=== PATIENT | female | born 1960 | race Caucasian/White ===

== ENCOUNTER 2016-07-24 16:03 | Emergency (ER) | payer BC, OTHER ==
[~2016-07-24] VITALS: Ht 167.6 cm; Wt 74.6 kg
[2016-07-24 16:06] VITALS: TEMP 36.8; Ht 167.6 cm; Wt 74.6 kg
[2016-07-24] MEDS ORDERED: NIFE30TA83 PO (16:50)
[2016-07-24] MEDS ORDERED: NTRGSL/4 UT (16:50)
[2016-07-24] MEDS ORDERED: COEN1CAP7 PO (16:51)
[2016-07-24] MEDS ORDERED: ASPI81TA28 PO (16:51)
[2016-07-24] MEDS ORDERED: RANI150T3 PO (16:54)
[2016-07-24] MEDS ORDERED: MOME0.1O TOP (16:54)
[2016-07-24 16:57] VITALS: O2SAT 100
[2016-07-24] MEDS ORDERED: SODIUM CHLORIDE 0.9% 1000ML 1,000 ML IV STA (16:59)
--- NOTE | 2016-07-24 17:01 | EMERGENCY ROOM VISIT NOTE ---
History Report prepared by Leopoldo: Fred Martinez Under the Supervision of: Dr. Jj Ashford D.O. First contact with patient: 16:49 Chief Complaint: CHEST PAIN Stated Complaint: CHEST DISCOMFORT,SOB Nursing Triage Summary: chest pains and sob intermittent for the past several weeks. I always have discomfort in the chest but this is worse. I was supposed to double my meds but I couldnt function so i didnt. last november is when they discovered an issues. History of Present Illness The patient is a 55 year old female with a history of angina who presents to the Emergency Room with complaints of intermittent chest discomfort for the past several weeks. The patient has had the pain since spring, which worsened several weeks ago. The pain is described as a squeezing sensation. The patient also complains of tachycardia and shortness of breath intermittently. The pain does not radiate. She recently had an abnormal EKG. She also had an echocardiogram. The patient hasn't had a stress test recently. She has had two cardiac catheterizations. She follows up with [facility] Cardiology. The patient has a history peripheral vascular disease and Raynaud's. She is a former smoker. The patient does not drink alcohol. The patient does not currently have a family doctor. LNMP six months ago. Source of History: patient Onset: several weeks Position: chest Quality: other (squeezing) Timing: intermittent Associated Symptoms: + SOB Review of Systems See HPI for pertinent positives & negatives. A total of 10 systems reviewed and were otherwise negative. Past Medical & Surgical Medical Problems: (1) CAD (coronary artery disease) (2) PVD (peripheral vascular disease) (3) Raynauds disease Family History No pertinent family history Social History Smoking Status: Never Smoker Alcohol Use: none Current/Historical Medications Scheduled Aspirin (Aspirin Ec), 81 MG PO BID Cholecalciferol (Vitamin D3), 1 TAB PO BID Coenzyme Q10 (Ubidecarenone) (Coq10), 200 MG PO BID Cyclosporine (Ophth) (Restasis), 1 DROPS OP BID Fish Oil (Celestine-3), 1 CAP PO QAM Green Tea (Camillia Sinensis) (Green Tea), 1 CAP PO BID Loratadine (Claritin), 10 MG PO HS Nifedipine Ext Rel (Procardia Xl Ext Rel), 30 MG PO QAM Pilocarpine (Salagen), 5 MG PO TID Probiotic Product (Probiotic), 2 CAP PO HS Ranitidine Hcl (Zantac), 150 MG PO HS Triamcinolone Acetonide (Nasal (Nasacort Allergy 24Hr), 2 SPRAYS KATHRINE HS [Amberen], 2 CAP PO HS Scheduled PRN Albuterol Sulfate (Proair Respiclick), 1 PUFF INH QID PRN for Shortness of Breath Diclofenac Sodium (Topical) (Voltaren 1% Top Gel), 1 APPLN TOP UD PRN for ARTHRITIS Eye Drops (Eye Drops), 1 DROP OPB UD PRN for DRY EYES Mometasone Furoate (Elocon), 1 APPLN TOP UD PRN for PERNIO Nitroglycerin (Nitrostat), 0.4 MG UT PRN PRN for Chest Pain Phenylephrine-Ibuprofen (Advil Congestion Relief), 1 TAB PO UD PRN for ALLERGY RELIEF Polyethylene Glycol 3350 (Miralax), 17 GM PO HS PRN for Constipation Polyvinyl Alcohol-Povidone (Op (Refresh), 1 DROP OPB UD PRN for DRY EYES [Midodrine Hcl 0.2%], 1 APPLN TOP HS PRN for ERYTHROMELALGIA Allergies Coded Allergies: Rosuvastatin (Verified Allergy, Intermediate, MYALGIA, 07/24/16) Theophylline (Verified Allergy, Intermediate, N & V, 07/24/16) Latex (Verified Allergy, Mild, SKIN IRRITATION, 07/24/16) Uncoded Allergies: CARDIZEM (Allergy, Intermediate, RESP. DISTRESS WITH SHORT ACTING, 04/06/13 ) STEROIDS (Allergy, Intermediate, AGITATION, 04/06/13) STEROIDS INHALER (Allergy, Intermediate, THRUSH, 04/06/13) Physical Exam Vital Signs Date Time Temp Pulse Resp B/P Pulse Ox O2 Delivery O2 Flow Rate FiO2 07/24/16 19:46 72 23 133/94 98 07/24/16 18:16 80 16 147/90 98 Room Air 07/24/16 17:00 121 07/24/16 16:57 100 Room Air 07/24/16 16:06 36.8 123 18 153/99 98 Room Air Physical Exam GENERAL: Patient is awake, alert, and in no acute distress. Patient is resting comfortably and showing no signs of anxiety EYES: The conjunctivae are clear. The pupils are round and reactive. EARS, NOSE, MOUTH AND THROAT: The nose is without any evidence of any deformity. Mucous membranes are moist tongue is midline NECK: The neck is nontender and supple. RESPIRATORY: Normal respiratory effort is noted there is no evidence of wheezing rhonchi or rales CARDIOVASCULAR: Regular rate and rhythm noted there no murmurs rubs or gallops normal S1 normal S2 GASTROINTESTINAL: The abdomen is soft. Bowel sounds are present in all quadrants. Abdomen is nontender PELVIS: The Pelvis is stable. No tenderness to palpation is noted. BACK: No midline tenderness or or step-off noted range of motion in flexion extension as well as rotation no signs of muscle spasm noted MUSCULOSKELETAL/EXTREMITIES: There is no evidence of gross deformity full range of motion is noted in the hips and shoulders SKIN: There is no obvious evidence of any rash. There are no petechiae, pallor or cyanosis noted. NEUROLOGIC: Patient is awake alert and oriented x3. Medical Decision & Procedures ER Provider Diagnostic Interpretation: X-ray results as stated below per interpretation by me and the radiologist. CHEST ONE VIEW PORTABLE CLINICAL HISTORY: EVALUATE RESPIRATORY DISTRESS. DYSPNEA cough COMPARISON STUDY: No previous studies for comparison. FINDINGS: The bones soft tissues and hemidiaphragms are normal. The cardiomediastinal silhouette is normal. The lungs are clear. The pulmonary vasculature is normal. IMPRESSION: Negative chest. Electronically signed by: Kamari Dawson M.D. 07/24/2016 5:24 PM Dictated Date/Time: 07/24/2016 5:24 PM Laboratory Results 07/24/16 16:55 Red Blood Count 4.75, Mean Corpuscular Volume 90.3, Mean Corpuscular Hemoglobin 30.3, Mean Corpuscular Hemoglobin Concent 33.6, Mean Platelet Volume 10.8, Neutrophils (%) (Auto) 63.6, Lymphocytes (%) (Auto) 27.5, Monocytes (%) (Auto) 8.4, Eosinophils (%) (Auto) 0.3, Basophils (%) (Auto) 0.2, Neutrophils # (Auto) 4.15, Lymphocytes # (Auto) 1.79, Monocytes # (Auto) 0.55, Eosinophils # (Auto) 0.02, Basophils # (Auto) 0.01 07/24/16 16:55 Test 07/24/16 15:45 07/24/16 16:55 Urine Color YELLOW Urine Appearance CLEAR (CLEAR) Urine pH 5.5 (4.5-7.5) Urine Specific [place] 1.001 (1.000-1.030) Urine Protein NEG (NEG) Urine Glucose (UA) NEG (NEG) Urine Ketones TRACE (NEG) Urine Occult Blood TRACE (NEG) Urine Nitrite NEG (NEG) Urine Bilirubin NEG (NEG) Urine Urobilinogen NEG (NEG) Urine Leukocyte Esterase TRACE (NEG) Urine WBC (Auto) 1-5 /hpf (0-5) Urine RBC (Auto) 0-4 /hpf (0-4) Urine Hyaline Casts (Auto) 0 /lpf (0-5) Urine Epithelial Cells (Auto) 5-10 /lpf (0-5) Urine Bacteria (Auto) NEG (NEG) White Blood Count 6.52 K/uL (4.8-10.8) Red Blood Count 4.75 M/uL (4.2-5.4) Hemoglobin 14.4 g/dL (12.0-16.0) Hematocrit 42.9 % (37-47) Mean Corpuscular Volume 90.3 fL (80-100) Mean Corpuscular Hemoglobin 30.3 pg (25-34) Mean Corpuscular Hemoglobin Concent 33.6 g/dl (32-36) Platelet Count 268 K/uL (130-400) Mean Platelet Volume 10.8 fL (7.4-10.4) Neutrophils (%) (Auto) 63.6 % Lymphocytes (%) (Auto) 27.5 % Monocytes (%) (Auto) 8.4 % Eosinophils (%) (Auto) 0.3 % Basophils (%) (Auto) 0.2 % Neutrophils # (Auto) 4.15 K/uL (1.4-6.5) Lymphocytes # (Auto) 1.79 K/uL (1.2-3.4) Monocytes # (Auto) 0.55 K/uL (0.11-0.59) Eosinophils # (Auto) 0.02 K/uL (0-0.5) Basophils # (Auto) 0.01 K/uL (0-0.2) RDW Standard Deviation 43.3 fL (36.4-46.3) RDW Coefficient of Variation 13.1 % (11.5-14.5) Immature Granulocyte % (Auto) 0.0 % Immature Granulocyte # (Auto) 0.00 K/uL (0.00-0.02) Prothrombin Time 10.9 SECONDS (9.0-12.0) Prothromb Time International Ratio 1.0 (0.9-1.1) Activated Partial Thromboplast Time 27.2 SECONDS (21.0-31.0) Partial Thromboplastin Ratio 1.0 D-Dimer 220 ug/L FEU (0-500) Anion Gap 9.0 mmol/L (3-11) Est Creatinine Clear Calc Drug Dose 78.1 ml/min Estimated GFR () 90.0 Estimated GFR (Non- 77.7 BUN/Creatinine Ratio 14.1 (10-20) Calcium Level 9.1 mg/dl (8.5-10.1) Magnesium Level 1.8 mg/dl (1.8-2.4) Total Bilirubin 0.3 mg/dl (0.2-1) Aspartate Amino Transf (AST/SGOT) 16 U/L (15-37) Alanine Aminotransferase (ALT/SGPT) 24 U/L (12-78) Alkaline Phosphatase 71 U/L (45-117) Troponin I < 0.015 ng/ml (0-0.045) Total Protein 7.9 gm/dl (6.4-8.2) Albumin 4.1 gm/dl (3.4-5.0) Globulin 3.8 gm/dl (2.5-4.0) Albumin/Globulin Ratio 1.1 (0.9-2) Thyroid Stimulating Hormone (TSH) 1.570 uIu/ml (0.300-4.500) Free Thyroxine 1.08 ng/dl (0.80-1.60) Human Chorionic Gonadotropin, Qual NEG (NEG) Laboratory results per my review. Medications Administered Medications (Trade) Dose Ordered Sig/Vanessa Route Start Time Stop Time Status Last Admin Dose Admin Sodium Chloride (Nss 1000ml) 1,000 ml @ 999 mls/hr Q1H1M STAT IV 07/24/16 16:59 07/24/16 17:59 DC 07/24/16 17:17 999 MLS/HR ECG Indication: chest pain Rate (beats per minute): 113 Rhythm: sinus tachycardia Findings: ST depression (inferior, lateral), no ectopy Change: No change when compared to undated laminated EKG that she carries with her. ED Course 1655: The patient was evaluated in room C5. A complete history and physical examination were performed. 1658: NSS 1000 ml @ 999 mls/hr. 1842: The patient caries a laminated EKG that is not dated. She says the EKG is a few years old. The EKG today is unchanged compared to the laminated EKG. 193: Reassessed the patient. Discussed the findings with her. She verbalized understanding and agreement of the treatment plan. The patient is ready for discharge. Medical Decision Etiologies such as cardiac ischemia, aortic dissection, pulmonary embolism, pneumonia, pneumothorax, musculoskeletal, infections, pericarditis, myocarditis , esophageal rupture, gastrointestinal, as well as others were entertained. Nursing notes reviewed. The patient is a 55-year-old female who presented to the emergency department for evaluation of chest pain. The patient has had ongoing chest pain problems for the last year. She is been worked up in the past. She's had echocardiograms. She also complained of some shortness of breath. The patient's d-dimer was negative. She did not have significant hypoxia her EKG showed some abnormalities but she was able to produce a previous EKG that had similar T- wave abnormalities. I discussed the patient's laboratory and radiographic studies with her. Her troponin was negative despite having ongoing symptoms for greater than 6 hours. I discussed the limitations of the emergency department workup for chest pain with her. She was encouraged to rest and avoid any strenuous activity. She was also encouraged to call her primary care physician to schedule a follow-up appointment as soon as possible. She was also encouraged to return to the emergency department immediately if symptoms change worsen or the need arises. Impression Primary Impression: Substernal chest pain Additional Impression: Abnormal EKG Scribe Attestation The scribe's documentation has been prepared under my direction and personally reviewed by me in its entirety. I confirm that the note above accurately reflects all work, treatment, procedures, and medical decision making performed by me. Departure Information Dispostion Home / Self-Care Referrals No Doctor, Assigned (PCP) Forms HOME CARE DOCUMENTATION FORM, IMPORTANT VISIT INFORMATION, Work Instructions Patient Instructions ED Chest Pain Atypical Unkn Cause, My [facility] Additional Instructions Call your family to schedule a follow-up appointment. Rest and avoid any strenuous activity. Continue all medications as prescribed. Return to the emergency department if symptoms change worsen or if the need arises. Problem Qualifiers
[2016-07-24 17:10] LABS: BASO % 0.2 %; BASO ABS # 0.01 K/uL (0-0.2); COMPLETE YES; EOS % 0.3 %; HEMATOCRIT 42.9 % (37-47); LYMPH % 27.5 %; LYMPH ABS # 1.79 K/uL (1.2-3.4); MEAN CELL VOLUME 90.3 fL (80-100); MEAN CORPUSCULAR HEMOGLOBIN 30.3 pg (25-34); MEAN CORPUSCULAR HGB CONC 33.6 g/dl (32-36); MEAN PLATELET VOLUME 10.8 fL (7.4-10.4); MONO % 8.4 %; NEUT % 63.6 %; PLATELET COUNT 268 K/uL (130-400); RED BLOOD COUNT 4.75 M/uL (4.2-5.4); WHITE BLOOD COUNT 6.52 K/uL (4.8-10.8)
[2016-07-24 17:26] LABS: PREG INTERNAL NEGATIVE QC NEG CLEAR BACKGROUND; PREG INTERNAL POSITIVE QC POS CONTROL LINE
--- NOTE | 2016-07-24 17:26 | DIAGNOSTIC IMAGING REPORT ---
CHEST ONE VIEW PORTABLE CLINICAL HISTORY: EVALUATE RESPIRATORY DISTRESS. DYSPNEA cough COMPARISON STUDY: No previous studies for comparison. FINDINGS: The bones soft tissues and hemidiaphragms are normal. The cardiomediastinal silhouette is normal. The lungs are clear. The pulmonary vasculature is normal. IMPRESSION: Negative chest. Electronically signed by: Kamari Dawson M.D. 07/24/2016 5:24 PM Dictated Date/Time: 07/24/2016 5:24 PM
[2016-07-24] MEDS ORDERED: MIDODRINE HCL TOP (17:28)
[2016-07-24] MEDS ORDERED: EYED OPB (17:28)
[2016-07-24] MEDS ORDERED: AMBEREN PO (17:28)
[2016-07-24] MEDS ORDERED: DICL1GEL12 TOP (17:28)
[2016-07-24] MEDS ORDERED: TRIA1SPR4 NAE (17:28)
[2016-07-24] MEDS ORDERED: OMEG10007 PO (17:28)
[2016-07-24] MEDS ORDERED: MISCCAP80 PO (17:28)
[2016-07-24] MEDS ORDERED: CLR10 PO (17:28)
[2016-07-24] MEDS ORDERED: GREE315C PO (17:28)
[2016-07-24] MEDS ORDERED: CHOL20007 PO (17:28)
[2016-07-24] MEDS ORDERED: POLYSOL OPB (17:28)
[2016-07-24] MEDS ORDERED: ALBU18002 INH (17:28)
[2016-07-24] MEDS ORDERED: PILO5TAB10 PO (17:28)
[2016-07-24] MEDS ORDERED: [UNRECOGNIZED DRUG - CODE] PO (17:28)
[2016-07-24] MEDS ORDERED: POLY335019 PO (17:28)
[2016-07-24] MEDS ORDERED: CYCL0.052 OP (17:28)
[2016-07-24 17:32] LABS: PROTHROMBIN TIME (PATIENT) 10.9 SECONDS (9.0-12.0)
[2016-07-24 17:34] LABS: ALT/SGPT 24 U/L (12-78); AST/SGOT 16 U/L (15-37); BLOOD UREA NITROGEN 12 mg/dl (7-18); BUN/CREATININE RATIO 14.1 (10-20); CALCIUM 9.1 mg/dl (8.5-10.1); CARBON DIOXIDE 27 mmol/L (21-32); CHLORIDE 107 mmol/L (98-107); CREATININE 0.85 mg/dl (0.60-1.20); GLUCOSE 96 mg/dl (70-99); MAGNESIUM 1.8 mg/dl (1.8-2.4); POTASSIUM 3.6 mmol/L (3.5-5.1); SODIUM 143 mmol/L (136-145)
[2016-07-24 17:45] LABS: ALB/GLOB RATIO 1.1 (0.9-2); ALKALINE PHOSPHATASE 71 U/L (45-117)
[2016-07-24 18:02] LABS: URINE APPEARANCE CLEAR (CLEAR); URINE BILIRUBIN NEG (NEG); URINE COLOR YELLOW; URINE NITRITE NEG (NEG); URINE PH 5.5 (4.5-7.5); URINE SPECIFIC GRAVITY 1.001 (1.000-1.030); UROBILINOGEN NEG (NEG)
[2016-07-24 18:09] LABS: MANUAL MICROSCOPIC REQUIRED? NO; REVIEW REQ? NO
[2016-07-24 19:46] VITALS: BP 133/94; PULSE 72; O2SAT 98
== END 2016-07-24 19:46 | disposition home or self-care (01) ==
LOC: C.EDB 16:03 → C.EDC 19:46
DX: R07.2 Precordial pain (principal); R94.31 Abnormal electrocardiogram [ECG] [EKG]; R06.02 Shortness of breath; R00.0 Tachycardia, unspecified; I25.10 Atherosclerotic heart disease of native coronary artery without angina pectoris; I73.9 Peripheral vascular disease, unspecified; I73.00 Raynaud's syndrome without gangrene; Z87.891 Personal history of nicotine dependence; Z79.82 Long term (current) use of aspirin; Z79.899 Other long term (current) drug therapy; Z88.8 Allergy status to other drugs, medicaments and biological substances; Z91.040 Latex allergy status

== ENCOUNTER → 2016-08-18 | Outpatient (CLI) | payer OTHER ==
[~2016-08-18] MED LIST: ALBU18002 INH; AMBEREN PO; ASPI81TA28 PO; CHOL20007 PO; CLR10 PO; COEN1CAP7 PO; CYCL0.052 OP; DICL1GEL12 TOP; EYED OPB; GREE315C PO; MIDODRINE HCL TOP; MISCCAP80 PO; MOME0.1O TOP; NIFE30TA83 PO; NTRGSL/4 UT; OMEG10007 PO; PILO5TAB10 PO; POLY335019 PO; POLYSOL OPB; RANI150T3 PO; TRIA1SPR4 NAE; [UNRECOGNIZED DRUG - CODE] PO
--- NOTE | 2016-08-18 15:59 | MAMMOGRAPHY REPORT ---
BILATERAL DIGITAL SCREENING MAMMOGRAM TOMOSYNTHESIS WITH CAD: 08/18/2016 TECHNIQUE: Breast tomosynthesis in addition to standard 2D mammography was performed. Current study was also evaluated with a Computer Aided Detection (CAD) system. COMPARISON: Comparison is made to exams dated: 08/06/2015 mammogram, 07/31/2014 mammogram, 07/19/2012 mammogram, 07/14/2011 mammogram, 07/25/2013 mammogram, and 07/07/2010 mammogram - [facility]. BREAST COMPOSITION: The tissue of both breasts is extremely dense, which lowers the sensitivity of mammography. FINDINGS: There is a small cluster of calcifications in the right upper outer quadrant, for which s pot magnification views are recommended for further evaluation. The remainder of both breasts are stable compared to prior exams, without suspicious masses, calcifi cations, or areas of architectural distortion noted. Other scattered bilateral benign appearing imelda cifications are not significantly changed. A biopsy marker clip is again noted in the right upper o uter quadrant. IMPRESSION: ACR BI-RADS CATEGORY 0: INCOMPLETE EVALUATION: NEED ADDITIONAL IMAGING EVALUATION Right upper outer quadrant calcifications, for which additional imaging evaluation is recommended. The patient will be called to schedule an appointment. Approximately 10% of breast cancers are not detected with mammography. A negative mammographic repor t should not delay biopsy if a clinically suggestive mass is present. Nelsy Hernandez M.D. ah/:08/18/2016 15:50:50 Senior Vice President And Chief Information Officer: Mikala CONTRERAS(Mejia)(Shelly), [facility] letter sent: Addl Imaging 0 BI-RADS Code: ACR BI-RADS Category 0: Incomplete Evaluation: Need Additional Imaging Evaluation
== END | disposition home or self-care (01) ==
LOC: C.MAMM 11:43
PROVIDERS: ATTEND Obstetrics & Gynecology
DX: Z12.31 Encounter for screening mammogram for malignant neoplasm of breast (principal); R92.1 Mammographic calcification found on diagnostic imaging of breast

== ENCOUNTER → 2016-08-25 | Outpatient (CLI) | payer OTHER ==
--- NOTE | 2016-08-25 15:31 | MAMMOGRAPHY REPORT ---
UNILATERAL RIGHT DIGITAL DIAGNOSTIC MAMMOGRAM: 08/25/2016 CLINICAL HISTORY: 55-year-old woman with a history of prior benign right breast stereotactic biopsy called back from screening mammography for a new cluster of coarse heterogeneous microcalcifications in the upper outer quadrant of the right breast. TECHNIQUE: Spot magnification right CC and ML views were obtained. COMPARISON: Comparison is made to exams dated: 08/18/2016 mammogram, 07/31/2014 mammogram, 08/06/2015 m ammogram, 07/25/2013 mammogram, 07/19/2012 mammogram, and 07/14/2011 mammogram - [facility]. BREAST COMPOSITION: The tissue of the right breast is heterogeneously dense, which may obscure smal l masses. FINDINGS: There is a 5 mm cluster of coarse heterogeneous microcalcifications in the upper outer po sterior right breast. Although this could represent a degenerating fibroadenoma or papilloma, it is indeterminate. The morphology is different from the biopsied cluster in 2009, which was more amorp hous in appearance. Therefore, further characterization with a right breast stereotactic biopsy is recommended. IMPRESSION: ACR BI-RADS CATEGORY 4B: INTERMEDIATE SUSPICION FOR MALIGNANCY Right breast stereotactic guided biopsy is recommend it for a 5 mm cluster of coarse heterogeneous m icrocalcifications in the upper outer posterior breast. These results and recommendations were discussed with the patient at the time of the exam. She tent atively scheduled the biopsy prior to leaving our department. Approximately 10% of breast cancers are not detected with mammography. A negative mammographic repor t should not delay biopsy if a clinically suggestive mass is present. Eli Miles M.D. ay/:08/25/2016 14:53:38 Arc And Gas Welder: Lynn CONTRERAS(R)(Shelly), [facility] letter sent: Abnormal 4/5 BI-RADS Code: ACR BI-RADS Category 4B: Intermediate Suspicion For Malignancy
== END | disposition home or self-care (01) ==
LOC: C.MAMM 12:40
PROVIDERS: ATTEND Obstetrics & Gynecology
DX: R92.0 Mammographic microcalcification found on diagnostic imaging of breast (principal)

== ENCOUNTER → 2016-09-08 | Outpatient (CLI) | payer OTHER ==
--- NOTE | 2016-09-08 13:25 | Discharge Instructions ---
Discharge Instructions Procedure Procedure Date: Sep 08, 2016. Reason for visit: Right Calcs. Discharge Discharge Date: Sep 08, 2016. Discharge Diagnosis: status post breast biopsy Instructions Activity Recommendations: Additional Limitations (see below) Return to School/Work: no limitations Recommended Home Diet: No Limitations Provider Instructions: ACTIVITY RECOMMENDATIONS: * No lifting, pushing, pulling or exercising the affected side for three days. RETURN TO SCHOOL/WORK: * You may return to work/school after the procedure, but do not perform any strenuous activities for 24 to 48 hours. MEDICATIONS: * Tylenol (two 325 mg) every four to six hours if needed for mild pain (if not allergic to Tylenol). DIET: * Resume previous diet. SPECIAL CARE INSTRUCTIONS: * Keep biopsy site dry for 24 hours. May shower after 24 hours, but do not soak (bathe) incision. * May remove Tegaderm (plastic patch) tomorrow AFTER showering. * Leave the steri-strips on for one week. Allow the steri-strips to fall off by themselves. If not off after one week, you may remove them. You may place a Bandaid crosswise over the strips, if desired. * Apply ice 10 minutes on and 10 minutes off as needed. * Wear a bra at bedtime to sleep more comfortably for 2-3 days. * Your referring physician should have the results after approximately 5 to 7 business days. * Call for unusual bleeding, fever, drainage, etc or if you have any questions call during normal business hours or after hours call Dr Hernandez, . FOLLOW UP VISIT: Follow-up with Referring Physician as scheduled. Allergies Coded Allergies: Rosuvastatin (Verified Allergy, Intermediate, MYALGIA, 07/24/16) Theophylline (Verified Allergy, Intermediate, N & V, 07/24/16) Latex (Verified Allergy, Mild, SKIN IRRITATION, 07/24/16) Uncoded Allergies: CARDIZEM (Allergy, Intermediate, RESP. DISTRESS WITH SHORT ACTING, 04/06/13 ) STEROIDS (Allergy, Intermediate, AGITATION, 04/06/13) STEROIDS INHALER (Allergy, Intermediate, THRUSH, 04/06/13) Herb Carmichael Recommendations: Call your doctor if: * Temperature above 101 degrees * Pain not relieved by pain medicine ordered * There is increased drainage or redness from any incision * You have any unanswered questions or concerns. Your Doctors Instructions noted above were prepared by provider Nelsy Hernandez. Patient Signature Section: Patient Instructions Signature Page Mirian Chin Patient (or Guardian) Signature/Date: I have read and understand the instructions given to me by my caregivers. Caregiver/RN/Doctor Signature/Date: The above-named patient and/or guardian has received patient instructions on this date. + Original Patient Signature Page (only) stays with chart. Please make copy for patient.
--- NOTE | 2016-09-08 15:01 | MAMMOGRAPHY REPORT ---
STEREOTACTIC GUIDED BIOPSY RIGHT BREAST: 09/08/2016 CLINICAL HISTORY: Indeterminate calcifications in the right upper outer quadrant. PATIENT CONSENT: The procedure, risks, benefits, and alternatives of stereotactic biopsy with clip p lacement were discussed with the patient, and verbal and written consent was obtained. A timeout wa s performed immediately prior to the procedure. PROCEDURE DESCRIPTION: With stereotactic guidance, aseptic technique, and lidocaine as a local anest hetic (1% lidocaine to anesthetize the skin and 1% lidocaine with epinephrine to anesthetize the iglesia per tissues), the area of concern was sampled multiple times with a 9-gauge vacuum-assisted biopsy n eedle (Suros Eviva). The path of approach was lateral. The specimen radiograph demonstrates calcif ications to be present in the samples. A metallic marker clip was placed at the biopsy site. This was confirmed on postprocedure mammograms. Direct pressure was applied at the biopsy site and hemos tasis was readily achieved. The patient tolerated the procedure without complication. She was give n wound care instructions. COMPARISON: Comparison is made to exams dated: 08/25/2016 mammogram, 08/18/2016 mammogram, 08/06/2015 ma mmogram, 07/31/2014 mammogram, 07/25/2013 mammogram, and 07/19/2012 mammogram - [facility]ter. IMPRESSION: STEREOTACTIC GUIDED BIOPSY Stereotactic biopsy of indeterminate calcifications in the right upper outer quadrant, with clip anthony cement. The patient will receive pathology results from her referring provider. Nelsy Hernandez M.D. /:09/08/2016 13:26:21 Insulation Mechanic: Lynn MCKENNA)(Shelly), [facility]
--- NOTE | 2016-09-08 15:02 | MAMMOGRAPHY REPORT ---
UNILATERAL RIGHT DIGITAL DIAGNOSTIC MAMMOGRAM: 09/08/2016 CLINICAL HISTORY: Status post right breast stereotactic biopsy. TECHNIQUE: Postprocedural right CC and ML views were obtained. COMPARISON: Comparison is made to exams dated: 08/18/2016 mammogram, 08/06/2015 mammogram, 07/31/2014 m ammogram, 07/25/2013 mammogram, 07/19/2012 mammogram, and 07/14/2011 mammogram - [facility] enter. BREAST COMPOSITION: The tissue of the right breast is heterogeneously dense, which may obscure smal l masses. FINDINGS: A new biopsy marker clip is seen at the site of the biopsied calcifications in the right upper outer quadrant. No significant postbiopsy hematoma is seen. IMPRESSION: POST PROCEDURE IMAGING FOR MARKER PLACEMENT New biopsy marker clip status post right breast stereotactic biopsy. Pathology results are pending. Approximately 10% of breast cancers are not detected with mammography. A negative mammographic repor t should not delay biopsy if a clinically suggestive mass is present. Nelsy Hernandez M.D. ah/:09/08/2016 13:44:46 Report Programmer: Lynn Levy RT(R)(M), [facility] BI-RADS Code: Post Procedure Imaging For Marker Placement
== END | disposition home or self-care (01) ==
LOC: C.MAMM 12:35
PROVIDERS: ATTEND Obstetrics & Gynecology
DX: R92.1 Mammographic calcification found on diagnostic imaging of breast (principal); D24.1 Benign neoplasm of right breast

== ENCOUNTER → 2016-12-15 | Outpatient (CLI) | payer OTHER | END | disposition home or self-care (01) | LOC: C.LAB1850 10:58 | PROVIDERS: ATTEND Internal Medicine Endocrinology, Diabetes & Metabolism | DX: E55.9 Vitamin D deficiency, unspecified (principal); Z86.39 Personal history of other endocrine, nutritional and metabolic disease ==

== ENCOUNTER → 2017-01-05 | Outpatient (CLI) | payer OTHER | END | disposition home or self-care (01) | LOC: C.MAMM 08:01 | PROVIDERS: ATTEND Internal Medicine Endocrinology, Diabetes & Metabolism | DX: E55.9 Vitamin D deficiency, unspecified (principal); Z86.39 Personal history of other endocrine, nutritional and metabolic disease; M35.00 Sjogren syndrome, unspecified; M85.851 Other specified disorders of bone density and structure, right thigh; M85.852 Other specified disorders of bone density and structure, left thigh ==

== ENCOUNTER → 2017-01-06 | Outpatient (CLI) | payer OTHER ==
[2017-01-06 16:03] LABS: POTASSIUM 4.2 mmol/L (3.5-5.1)
== END | disposition home or self-care (01) ==
LOC: C.LAB1850 14:44
DX: E87.6 Hypokalemia (principal)

== ENCOUNTER → 2017-06-01 | Outpatient (CLI) | payer OTHER ==
[2017-06-01 09:55] LABS: ALT/SGPT 28 U/L (12-78); AST/SGOT 16 U/L (15-37); BLOOD UREA NITROGEN 12 mg/dl (7-18); BUN/CREATININE RATIO 13.5 (10-20); CALCIUM 9.4 mg/dl (8.5-10.1); CARBON DIOXIDE 27 mmol/L (21-32); CHLORIDE 105 mmol/L (98-107); CREATININE 0.86 mg/dl (0.60-1.20); GLUCOSE 80 mg/dl (70-99); MAGNESIUM 2.4 mg/dl (1.8-2.4); POTASSIUM 3.8 mmol/L (3.5-5.1); SODIUM 140 mmol/L (136-145)
[2017-06-01 09:56] LABS: ALKALINE PHOSPHATASE 77 U/L (45-117); PHOSPHORUS 3.6 mg/dl (2.5-4.9)
== END | disposition home or self-care (01) ==
LOC: C.LAB1850 08:00
DX: E87.6 Hypokalemia (principal); I20.1 Angina pectoris with documented spasm

== ENCOUNTER → 2017-08-24 | Outpatient (CLI) | payer OTHER ==
--- NOTE | 2017-08-25 08:03 | MAMMOGRAPHY REPORT ---
BILATERAL DIGITAL SCREENING MAMMOGRAM TOMOSYNTHESIS WITH CAD: 08/24/2017 CLINICAL HISTORY: Routine screening examination. TECHNIQUE: Breast tomosynthesis in addition to standard 2D mammography was performed. Current study was also evaluated with a Computer Aided Detection (CAD) system. COMPARISON: Comparison is made to exams dated: 08/18/2016 mammogram, 08/06/2015 mammogram, 07/31/2014 ma mmogram, 07/25/2013 mammogram, 07/10/2009 ultrasound, and 07/23/2009 stereotactic biopsy - [facility]. BREAST COMPOSITION: The tissue of both breasts is heterogeneously dense, which may obscure small mas ses. FINDINGS: No suspicious masses, calcifications, or areas of architectural distortion are noted in ei ther breast. There has been no significant interval change compared to prior exams. Bilateral benign -appearing calcifications are not significantly changed. Biopsy marker clips are again noted within the right upper outer quadrant. IMPRESSION: ACR BI-RADS CATEGORY 2: BENIGN There is no mammographic evidence of malignancy. A 1 year screening mammogram is recommended. The pa tient will receive written notification of the results. Approximately 10% of breast cancers are not detected with mammography. A negative mammographic report should not delay biopsy if a clinically suggestive mass is present. Nelsy Hernandez M.D. ah/:08/24/2017 13:32:39 Acid Supervisor: Mikala MCKENNA)(M), [facility] letter sent: Normal 1/2 BI-RADS Code: ACR BI-RADS Category 2: Benign
== END | disposition home or self-care (01) ==
LOC: C.MAMM 09:53
PROVIDERS: ATTEND Obstetrics & Gynecology
DX: Z12.31 Encounter for screening mammogram for malignant neoplasm of breast (principal)